=== PATIENT | female | born 1970 | race Caucasian/White ===

== ENCOUNTER → 2019-06-30 11:30 | Outpatient (CLI) | payer OTHER, MEDICAID, SELFPAY ==
[2019-06-30 12:57] LABS: Hemoglobin A1c 11.8 % (4.2-6.3)
[2019-06-30 13:21] LABS: ALB/GLOB Ratio 0.9 RATIO (0.9-2.4); AST(SGOT) 16 U/L (15-37); Alanine Aminotransfer ALT/SGPT 30 U/L (13-56); Albumin, Serum 3.5 g/dL (3.2-5.0); Alkaline Phosphatase 112 U/L (45-117); Anion Gap 11 (5-15); BUN 12 mg/dL (7-18); Calcium,Total 9.2 mg/dL (8.5-10.1); Chloride 99 mmol/L (98-107); Creatinine, Serum 0.92 mg/dL (0.55-1.02); EST Glomerular Filtration Rate 68 mL/min (>60); Est Glom Filt Rate - Afr Amer 83 mL/min (>60); Globulin 3.9 g/dL (2.2-4.2); Glucose 487 mg/dL (74-106); Potassium 3.9 mmol/L (3.5-5.1); Protein, Total 7.4 g/dL (6.4-8.2); Sodium Level 135 mmol/L (136-145); T4 Free Direct 0.93 ng/dL (0.76-1.46); Thyroid Stim Hormone (TSH) 2.13 uIU/mL (0.358-3.74)
== END ==
PROVIDERS: Family Provider Family Medicine; PCP Family Medicine; Referring Provider Internal Medicine Endocrinology, Diabetes & Metabolism; Visit Provider Internal Medicine Endocrinology, Diabetes & Metabolism
DX: E11.65 Type 2 diabetes mellitus with hyperglycemia (principal)
CPT/HCPCS: 36415; 80053; 83036; 84439; 84443

== ENCOUNTER → 2019-10-14 10:49 | Outpatient (CLI) | payer OTHER, SELFPAY | PROVIDERS: PCP Family Medicine; Referring Provider Internal Medicine Endocrinology, Diabetes & Metabolism; Visit Provider Internal Medicine Endocrinology, Diabetes & Metabolism | DX: E10.65 Type 1 diabetes mellitus with hyperglycemia (principal) | CPT/HCPCS: 36415; 83036 ==

== ENCOUNTER → 2023-09-29 | Outpatient (CLI) | payer OTHER, SELFPAY ==
[2023-09-29 10:38] LABS: Microalbumin:Creatinine Ratio 298.3 mg/g CRE (<30 mg/g CRE)
[2023-09-29 10:45] LABS: AST(SGOT) 25 U/L (15-37); Alanine Aminotransfer ALT/SGPT 37 U/L (13-56); Albumin, Serum 3.2 g/dL (3.2-5.0); Alkaline Phosphatase 143 U/L (45-117); Anion Gap 4 (5-15); BUN 12 mg/dL (7-18); Calcium,Total 8.9 mg/dL (8.5-10.1); Chloride 105 mmol/L (98-107); Cholesterol 247 mg/dL (200); Creatinine, Serum 0.86 mg/dL (0.55-1.02); EST Glomerular Filtration Rate 73 mL/min (>60); Est Glom Filt Rate - Afr Amer 88 mL/min (>60); Globulin 4.5 g/dL (2.2-4.2); Glucose 405 mg/dL (74-106); High Density Lipoprotein 57 mg/dL; Potassium 3.5 mmol/L (3.5-5.1); Protein, Total 7.7 g/dL (6.4-8.2); Sodium Level 136 mmol/L (136-145); Triglycerides 113 mg/dL; Very Low Density Lipoprotein 23 mg/dL (5-40)
[2023-09-29 11:46] LABS: Hemoglobin A1c 12.7 % (3.8-5.6)
== END | disposition home or self-care (01) ==
LOC: MFPLAB 08:09
PROVIDERS: PCP Family Medicine; Visit Provider Family Medicine
DX: E11.65 Type 2 diabetes mellitus with hyperglycemia (principal)
CPT/HCPCS: 36415; 80048; 80061; 80076; 82043; 82570; 83036

== ENCOUNTER → 2023-11-21 | Outpatient (CLI) | payer OTHER, SELFPAY ==
--- NOTE | 2023-11-21 17:13 | RAD_ITS ---
INDICATION: pain EXAMINATION/TECHNIQUE: X-RAY - XR Right Ribs Unilateral W/ PA Chest Min 3 Views COMPARISON: FINDINGS: SOFT TISSUES: No soft tissue swelling or gas. BONES: No displaced fracture. No sclerotic or destructive changes observed. VISUALIZED LUNGS: Clear. No pneumothorax. RAD/Ribs Uni Min 3V w/PA Chest IMPRESSION: No evidence of displaced rib fracture. Electronically Signed: Daryn Quiroz DO at 19:45 EDT ,
== END | disposition home or self-care (01) ==
LOC: MTRAD 17:11
PROVIDERS: PCP Family Medicine; Referring Provider Family Medicine; Visit Provider Family Medicine
DX: R07.81 Pleurodynia (principal)
CPT/HCPCS: 71101

== ENCOUNTER 2023-11-27 17:08 | Emergency (ER) | payer OTHER, SELFPAY ==
[2023-11-27 17:09] VITALS: BP 132/79; PULSE 89; RESP 18; TEMP 36.2; O2SAT 97; BMI 22.3
--- NOTE | 2023-11-27 17:38 | ED.VIS.GI ---
HPI HPI - GI History of Present Illness Chief Complaint: Abd Pain Informant: patient and spouse/S.O. Narrative Narrative: 53-year-old diabetic female presenting to the emergency room with 1 week of constant right upper quadrant pain. Patient states that pushing on it seems to make it worse. No difference with food. No vomiting. No change in bowel movements. States she had a chest x-ray done that was negative and she was started on gabapentin out of concerns for possible shingles. She does note that it radiates towards the back. states that he pushed on the area of the back which seem to make it feel better. She does state that when she lays down in a certain position it can get worse sometimes better. No reported fevers. [facility], [facility] Medical History (Updated 11/27/23 @ 20:[address] Ash Lemus DO) Diabetes High cholesterol History of nephrolithotomy with removal of calculi Home Medications Lantus Solostar U-100 Insulin 100 unit/mL (3 mL) subcutaneous pen (insulin glargine) 30 unit (0.3 mL) subcut DAILY #9 mL 10/29/23 [Rx Last Taken Unknown] atorvastatin 10 mg tablet 10 mg PO QHS #30 tabs 10/29/23 [Rx Last Taken Unknown] blood-glucose sensor (FreeStyle Erika 3 Sensor device) #2 ea 10/29/23 [Rx Last Taken Unknown] insulin lispro 100 unit/mL subcutaneous pen (Humalog KwikPen (U-100) Insulin) 20 unit (0.2 mL) subcut TID #18 mL 10/29/23 [Rx Last Taken Unknown] lisinopril 2.5 mg tablet 2.5 mg PO DAILY #30 tabs 10/29/23 [Rx Last Taken Unknown] lidocaine 5 % topical patch (Lidoderm) 1 patch topical DAILY #15 ea 11/27/23 [Rx Last Taken Unknown] oxycodone-acetaminophen 5 mg-325 mg tablet 1 tab PO Q6H PRN PRN Pain 3 days #12 TABLETS 11/27/23 [Rx Last Taken Unknown] Allergy/AdvReac Type Severity Reaction Status Date / Time No Known Allergies Allergy Verified 11/27/23 17:09 Social History Smoking Status: Never smoker alcohol intake: current details: rare occasions what type of physical activity do you participate in: walking, running and other details: kettlebells frequency: 1-2 times per week ROS ROS ED Constitutional Constitutional ED: Denies chills, fever(s) or weight loss Eyes Eyes: Denies change in vision or diplopia ENT ENT ED: Denies ear pain, rhinorrhea or sore throat Cardiovascular Cardiovascular: Denies chest pain, orthopnea, palpitations or racing heartbeat Respiratory/Chest Respiratory/Chest: Denies cough, dyspnea or orthopnea Gastrointestinal Gastrointestinal: Reports abdominal pain; Denies diarrhea, nausea or vomiting Genitourinary Genitourinary ED: Denies dysuria, hematuria or urinary frequency Musculoskeletal Musculoskeletal: Denies arthralgias or myalgias Integumentary Denies abscess or rash Neurologic Neurologic: Denies headache(s) or weakness Psychiatric Psychiatric: Denies anxiety, depression, suicidal ideation or suicidal thoughts Endocrine Endocrinology: Denies polydipsia, polyphagia or polyuria Allergic/Immunologic Allergic/Immunologic ED: Denies mouth swelling, tongue swelling or urticaria EXAM Physical Exam Const Vital Signs: 11/27/23 17:09 11/27/23 19:09 Temperature 97.2 F L Temperature Source Temporal Pulse Rate 89 79 Respiratory Rate 18 14 Blood Pressure 132/79 H 137/100 H Blood Pressure Mean 96 112 Pulse Ox 97 99 Oxygen Delivery Method Room Air Room Air Positive well nourished and well developed General Appearance ED: well developed HEENT Reports normocephalic, head/scalp atraumatic and moist mucous membranes Eyes PERRL and EOMs intact bilaterally Neck no lymphadenopathy, supple and no JVD Chest Wall Chest Narrative: Patient is very tender to palpation over the lower ribs about 9 through 12. No rashes are appreciated. It is tender both anteriorly and posteriorly. Resp normal respiratory effort and clear to auscultation bilaterally Cardio regular rate, regular rhythm and no murmurs GI GI Narrative: Tender palpation of the right upper quadrant without rebound. Auscultation: normoactive bowel sounds Palpation: soft, tender RUQ and guarding; Negative for rebound tenderness present Back/Spine no CVA tenderness and normal ROM Extremity normal to inspection General Extremety ED: Negative for edema General Extremity: Negative for edema Neuro oriented x3 and CN's II-XII intact bilaterally Sensorium / Orientation: alert Motor Exam: strength 5/5 throughout Psych mental status grossly normal Mood & Affect: Negative for depressed or tearful Skin no rashes or lesions noted and no wounds MDM MDM MDM Narrative Medical decision making narrative: IV established patient received some Dilaudid and Zofran which did improve her back pain and temporarily improved her right upper quadrant pain. White count 7.1 hemoglobin 12.6 platelet count 313. BMP showed a glucose of 173 normal creatinine normal anion gap and CO2 level. LFTs are normal troponin is negative lipase 29 urinalysis 25-50 white cells [address] of the pelvis was obtained which does not demonstrate anything acute. There is a small fat-containing umbilical hernia. My independent interpretation of the chest x-ray is no acute process. Patient was noted on the monitor to have 2 sinus beats followed by a atrial ectopic beat. This was not a persistent finding. She does have the occasional atrial ectopy. I did do a bedside ultrasound. She is not particularly tender over the gallbladder. I do not see any pericholecystic fluid. The intrahepatic and extrahepatic ducts do not appear dilated. She is more tender over the ribs. I do not have a clear explanation for the patient's pain. She states the gabapentin that she is taking is not helping some to have her stop that. Will try a Lidoderm patch. If this works I will write her prescription. I can also write a prescription for some Percocet. Patient was given clear return instructions and instructions to follow-up with primary care History & Record Review Discussion w/independent historian: Patient and Significant other Lab Data Attestation: I reviewed the patient's lab results. Labs: Laboratory Results - last 24 hr 11/27/23 11/27/23 18:00 18:40 WBC 7.1 RBC 4.47 Hgb 12.6 Hct 38.2 MCV 85.5 MCH 28.2 MCHC 33.0 RDW Std Deviation 37.2 RDW Coeff of Jojo 11.9 Plt Count 313 MPV 10.2 Immature Gran % (Auto) 0.300 Neut % (Auto) 62.0 Lymph % (Auto) 25.8 [place] % (Auto) 6.0 Eos % (Auto) 5.5 H Baso % (Auto) 0.4 Absolute Neuts (auto) 4.4 Absolute Lymphs (auto) 1.84 Nucleated RBC % 0 Sodium 139 Potassium 3.6 Chloride 105 Carbon Dioxide 29.0 Anion Gap 5 BUN 18 Creatinine 0.68 Estim Creat Clear Calc 94.30 Est GFR (MDRD) Af Amer 115 Est GFR (MDRD) Non-Af 95 BUN/Creatinine Ratio 26.4 H Glucose 173 H Calcium 9.1 Total Bilirubin 0.30 Direct Bilirubin 0.11 AST 15 ALT 19 Alkaline Phosphatase 82 Troponin I High Sens < 3 L Total Protein 7.0 Albumin 3.4 Globulin 3.6 Lipase 29 Urine Color Yellow Urine Clarity Sl. Cloudy Urine pH 6.0 Ur Specific [place] 1.025 Urine Protein 15 H Urine Glucose (UA) Normal Urine Ketones Negative Urine Occult Blood Negative Urine Nitrite Negative Urine Bilirubin Negative Urine Urobilinogen Normal Ur Leukocyte Esterase 500 H Urine RBC 0 SEEN Urine WBC 25-50 SEEN Ur Squamous Epith Cells 0-5 SEEN Urine Bacteria 0 SEEN Urine Mucus 0 SEEN Radiography Diagnostic Testing: Clinical Impression(s) from Imaging Studies Abdomen/Pelvis CT 11/27/23 18:25 IMPRESSION: (NOT LISTED IN ORDER OF SIGNIFICANCE) There are no acute findings. Other findings as above. Electronically Signed: Balaji Vargas MD at 19:16 EDT , Chest X-Ray 11/27/23 19:30 IMPRESSION: No radiographic evidence of acute cardiopulmonary disease. Electronically Signed: Balaji Vargas MD at 19:46 EDT , EKG Initial EKG: Attestation: I personally reviewed and interpreted this EKG as follows: Comments: Sinus rhythm with a ventricular to 76 bpm. PACs noted. Discharge Plan Triage Chief Complaint: Abd Pain Other Complaint: Back Flank Pain ED Provider: Ash Lemus Dx/Rx/DC Orders Clinical Impression: Abdominal pain Instructions: Abdominal Pain Prescriptions: New oxycodone-acetaminophen [oxycodone-acetaminophen] 5-325 mg tablet 1 tab PO Q6H PRN PRN (Reason: Pain) 3 Days Qty: 12 0RF lidocaine [Lidoderm] 5 % adhesive patch,medicated 1 patch topical DAILY Qty: 15 0RF Rx Instructions: leave on most painful area for up to 12 hrs No Action (DME) FreeStyle Erika 3 Sensor Device See Rx Instructions .Route Qty: 2 5RF Rx Instructions: 1 sensor q 14 days insulin glargine [Lantus Solostar U-100 Insulin] 100 unit/mL (3 mL) insulin pen 30 unit subcut DAILY Qty: 9 5RF insulin lispro [Humalog KwikPen Insulin] 100 unit/mL insulin pen 20 unit subcut TID Qty: 18 5RF lisinopril 2.5 mg tablet 2.5 mg PO DAILY Qty: 30 5RF atorvastatin 10 mg tablet 10 mg PO QHS Qty: 30 5RF Primary Care Provider: Sushila Mckinley Referrals: Sushila Mckinley MD [Primary Care Provider] - 3-5 Days Disposition Disposition: Home, Self Care
--- NOTE | 2023-11-27 17:45 | ED.RN ---
irregular HR noted in triage, called for EKG from triage.
[2023-11-27 18:05] LABS: Absolute Lymphocyte Count 1.84 X10^3/uL (0.83-4.51); Absolute Neutrophil Count 4.4 X10^3/uL (2.0-7.7); Basophil# 0.03 X10^3/uL; Basophil% 0.4 % (0-1); Eosinophil# 0.39 X10^3/uL; Eosinophils% 5.5 % (0-5); Hematocrit 38.2 % (37-47); Hemoglobin 12.6 g/dL (12.0-15.0); Lymphocyte # 1.84 X10^3/ul (0.83-4.51); Lymphocyte % 25.8 % (19-41); Mean Corpuscular Hgb 28.2 pg (27.0-32.0); Mean Corpuscular Volume 85.5 fL (81-99); Mean Platelet Vol. 10.2 fl (6.2-12.0); Monocyte# 0.43 X10^3/uL; NRBC Flagged by Analyzer 0 % (0-5); Neutrophil # 4.42 X10^3/uL (2.7-7.7); Platelet Count 313 K/mm3 (150-450); RBC Distribution Width CV 11.9 % (11.6-14.6); RBC Distribution Width SD 37.2 fl (35.1-43.9); Red Blood Count 4.47 M/mm3 (4.2-5.4); White Blood Count 7.1 K/mm3 (4.4-11.0)
[2023-11-27 18:23] LABS: AST(SGOT) 15 U/L (15-37); Alanine Aminotransfer ALT/SGPT 19 U/L (13-56); Albumin, Serum 3.4 g/dL (3.2-5.0); Alkaline Phosphatase 82 U/L (45-117); Anion Gap 5 (5-15); BUN 18 mg/dL (7-18); BUN/Creat Ratio 26.4 RATIO (10-20); Bilirubin, Direct 0.11 mg/dL (0.00-0.30); Calcium,Total 9.1 mg/dL (8.5-10.1); Chloride 105 mmol/L (98-107); Creatinine, Serum 0.68 mg/dL (0.55-1.02); EST Glomerular Filtration Rate 95 mL/min (>60); Est Glom Filt Rate - Afr Amer 115 mL/min (>60); Globulin 3.6 g/dL (2.2-4.2); Glucose 173 mg/dL (74-106); Lipase 29 U/L (13-75); Potassium 3.6 mmol/L (3.5-5.1); Sodium Level 139 mmol/L (136-145)
--- NOTE | 2023-11-27 18:25 | CT_ITS ---
STUDY: CT Abdomen And Pelvis W/ Contrast Injection 11/27/2023 7:14 PM REASON FOR EXAM: Female, 53 years old. ABDOMINAL PAIN abdominal pain TECHNIQUE: Transaxial images were obtained without oral contrast, and IV 100mL Isovue-370 intravenous contrast. Individualized dose optimization techniques were used for this CT. COMPARISON: 06.09.12 FINDINGS: The visualized lung bases are unremarkable. The visualized portions of the heart are within normal limits. Unremarkable liver. Unremarkable gallbladder and extrahepatic biliary system. Unremarkable spleen. Unremarkable pancreas. Unremarkable bilateral adrenal glands. No acute findings of the right kidney. No acute findings of the left kidney. Unremarkable visualized stomach. Unremarkable small intestine. Unremarkable colon. There is non-visualization of the appendix. There are no acute findings of the abdominal aorta. Unremarkable inferior vena cava. Subcentimeter mesenteric lymph nodes. Unremarkable urinary bladder. Normal visualized uterus. Tubal ligation wires in place. There is an umbilical hernia containing fat. Unremarkable osseous structures. CT/Abdomen/Pelvis W IV Cont ONLY IMPRESSION: (NOT LISTED IN ORDER OF SIGNIFICANCE) There are no acute findings. Other findings as above. Electronically Signed: Balaji Vargas MD at 19:16 EDT ,
[2023-11-27] MEDS: HYDROmorphone 1 MG/ML Syringe 0.5 MG IV (18:27)
[2023-11-27] MEDS: Ondansetron 4 MG/2 ML Vial IV (18:27)
[2023-11-27 18:46] LABS: Bacteria 0 SEEN /hpf (None Seen); Mucous, Urine 0 SEEN /hpf (<or=2+); Red Blood Cells-Urine 0 SEEN /hpf (0-5)
[2023-11-27 18:49] LABS: Color, Urine Yellow (Yellow); Glucose, Dipstick Normal (Normal); Ketone-Dipstick Negative (Negative); Leukocyte Esterase-Dipstick 500 /ul (Negative); Nitrite-Dipstick Negative (Negative); Occult Blood-Urine Negative /ul (Negative); Protein-Dipstick 15 mg/dl (Negative); Specific Gravity, Urine 1.025 (1.002-1.030); Urine Bilirubin Dipstick Negative (Negative); Urine Clarity Sl. Cloudy (Clear); Urine Urobilinogen Normal (Normal)
[2023-11-27 18:57] LABS: Squamous Epithelial Cells - UA 0-5 SEEN /hpf (5-10); White Blood Cells 25-50 SEEN /hpf (0-5)
[2023-11-27 19:09] VITALS: BP 137/100; PULSE 79; RESP 14; O2SAT 99
--- NOTE | 2023-11-27 19:30 | RAD_ITS ---
EXAM: XR CHEST, 1 VIEW CLINICAL INDICATION: Pain TECHNIQUE: Frontal view of the chest. COMPARISON: 11/21/2023 FINDINGS: LUNGS AND PLEURAL SPACES: Unremarkable. No consolidation or edema. No pneumothorax. No effusion. HEART: Unremarkable. Cardiac silhouette not enlarged. MEDIASTINUM: Central airways and mediastinal contour are unremarkable. BONES/JOINTS: Unremarkable. No acute fracture. SOFT TISSUES: Unremarkable. RAD/Chest 1 View (Portable) IMPRESSION: No radiographic evidence of acute cardiopulmonary disease. Electronically Signed: Balaji Vargas MD at 19:46 EDT ,
[2023-11-27 19:43] LABS: Troponin-I HS < 3 pg/mL (3.0-54.0)
[2023-11-27] MEDS: Lidocaine 5% Patch 1 PATCH TOPICAL (20:56)
[2023-11-27 21:00] VITALS: BP 119/88; PULSE 84; RESP 16; TEMP 36.7; O2SAT 99
== END 2023-11-27 21:07 | disposition home or self-care (01) ==
PROVIDERS: Emergency Provider Emergency Medicine; PCP Family Medicine; Visit Provider Emergency Medicine
DX: R10.11 Right upper quadrant pain (principal); E11.9 Type 2 diabetes mellitus without complications; Z79.4 Long term (current) use of insulin; M54.9 Dorsalgia, unspecified; E78.00 Pure hypercholesterolemia, unspecified; Z79.899 Other long term (current) drug therapy
CPT/HCPCS: 71045; 74177; 80048; 80076; 81001; 83690; 84484; 85025; 93005; 96374; 96375; 99285; Q9967; A4216; J2405

== ENCOUNTER → 2023-12-01 | Outpatient (CLI) | payer OTHER, SELFPAY ==
[2023-12-01 08:39] LABS: Glucose 95 mg/dL (74-106)
[2023-12-02 12:09] LABS: C-Peptide 0.4 ng/mL (1.1-4.4)
== END | disposition home or self-care (01) ==
PROVIDERS: PCP Family Medicine; Visit Provider Nurse Practitioner Family
DX: E11.9 Type 2 diabetes mellitus without complications (principal)
CPT/HCPCS: 36415; 82947; 84681

== ENCOUNTER 2023-12-05 17:37 | Emergency (ER) | payer OTHER, SELFPAY ==
[2023-12-05 17:37] VITALS: BP 157/97; PULSE 93; RESP 16; TEMP 36.1
[2023-12-05 17:39] VITALS: BP 157/97; PULSE 93; RESP 16; TEMP 36.1; BMI 22.2
--- NOTE | 2023-12-05 18:06 | US_ITS ---
EXAM: US ABDOMEN LIMITED, RIGHT UPPER QUADRANT CLINICAL INDICATION: RUQ pain TECHNIQUE: Real-time ultrasound of the right upper quadrant with image documentation. COMPARISON: No relevant prior studies available. FINDINGS: LIVER: The liver measures 14.3 cm. There is normal echotexture. No intrahepatic biliary ductal dilation. GALLBLADDER: Gallbladder wall measures 3 mm. No shadowing gallstone. No pericholecystic fluid. Negative sonographic Deleon''s sign. COMMON BILE DUCT: The common bile duct measures 3 mm. The proximal common bile duct is within normal limits for the patient''s age. PANCREAS: Unremarkable as visualized. No focal abnormality is demonstrated in the pancreas. No pancreatic ductal dilatation. RIGHT KIDNEY: The right kidney measures 11.1 x 5.0 x 4.9 cm. There is no hydronephrosis. No shadowing calculus. No focal lesion or perinephric collection is demonstrated. US/Gallbladder IMPRESSION: No acute findings in the right upper quadrant. Electronically Signed: Karri Li MD at 19:24 EDT ,
--- NOTE | 2023-12-05 18:07 | EX.ED.DYSGE1 ---
HPI History of Present Illness Chief Complaint: Abd Pain Detail of Chief Complaint: Right upper quadrant pain Informant: patient Onset/Context/Timing Onset: Weeks Context: Gradual Onset Timing: Waxes and wanes Narrative Narrative: Patient presents with approximately 2 weeks of right upper quadrant pain. She was initially seen by her primary care physician and put on gabapentin for possible early shingles as she had pain that wraps around the lower ribs on the right. She never did break out in a rash. She continues to have pain that is worse to the right upper quadrant and states it feels like a tight charley horse. She does feel better when she puts pressure on the muscles in her right paraspinal region. She has had no fall or trauma. She states she will have slightly worsened pain after she eats. She has not had fever or chills. Patient was seen in the emergency room last week. CT scan was unremarkable and bedside ultrasound did not reveal any obvious abnormalities to the right upper quadrant. She is scheduled to see Dr. Diana on December 14. [facility] Medical History Diabetes High cholesterol History of nephrolithotomy with removal of calculi Home Medications Lantus Solostar U-100 Insulin 100 unit/mL (3 mL) subcutaneous pen (insulin glargine) 30 unit (0.3 mL) subcut DAILY #9 mL 10/29/23 [Rx Last Taken Unknown] atorvastatin 10 mg tablet 10 mg PO QHS #30 tabs 10/29/23 [Rx Last Taken Unknown] blood-glucose sensor (FreeStyle Erika 3 Sensor device) #2 ea 10/29/23 [Rx Last Taken Unknown] insulin lispro 100 unit/mL subcutaneous pen (Humalog KwikPen (U-100) Insulin) 20 unit (0.2 mL) subcut TID #18 mL 10/29/23 [Rx Last Taken Unknown] lisinopril 2.5 mg tablet 2.5 mg PO DAILY #30 tabs 10/29/23 [Rx Last Taken Unknown] lidocaine 5 % topical patch (Lidoderm) 1 patch topical DAILY #15 ea 11/27/23 [Rx Last Taken Unknown] oxycodone-acetaminophen 5 mg-325 mg tablet 1 tab PO Q6H PRN PRN Pain 3 days #12 TABLETS 11/27/23 [Rx Last Taken Unknown] tramadol 25 mg tablet 50 mg (2 x 25 mg) PO Q6H PRN pain #20 tabs 12/05/23 [Rx Last Taken Unknown] Allergy/AdvReac Type Severity Reaction Status Date / Time No Known Allergies Allergy Verified 12/05/23 17:38 Social History Smoking Status: Never smoker alcohol intake: current details: rare occasions what type of physical activity do you participate in: walking, running and other details: kettlebells frequency: 1-2 times per week ROS ROS ED Constitutional Constitutional ED: Denies chills or fever(s) Eyes Eyes: Denies discharge from eye(s) ENT ENT ED: Denies discharge from eye(s), rhinorrhea or sore throat Cardiovascular Cardiovascular: Denies chest pain or palpitations Respiratory/Chest Respiratory/Chest: Denies cough or dyspnea Gastrointestinal Gastrointestinal: Reports abdominal pain; Denies nausea or vomiting Genitourinary Genitourinary ED: Denies dysuria Musculoskeletal Musculoskeletal: Reports back pain; Denies extremity pain Integumentary Denies Abrasions or rash Neurologic Neurologic: Denies headache(s) or weakness Allergic/Immunologic Allergic/Immunologic ED: Denies lip swelling or urticaria EXAM Physical Exam Const Vital Signs: 12/05/23 17:39 12/05/23 17:37 Temperature 96.9 F L 96.9 F L Temperature Source Temporal Temporal Pulse Rate 93 93 Respiratory Rate 16 16 Blood Pressure 157/97 H 157/97 H Blood Pressure Mean 117 117 Positive well nourished and well developed General Appearance ED: well developed Eyes EOMs intact bilaterally Neck no lymphadenopathy Chest Wall inspection of chest normal and palpation of chest normal Resp normal respiratory effort and clear to auscultation bilaterally Cardio regular rate and regular rhythm GI GI Narrative: Abdomen soft with mild tenderness in the right upper quadrant. No palpable masses. No guarding or rebound. Back/Spine Back/Spine Narrative: Reproducible tenderness in the lower thoracic right paraspinal muscles. No overlying skin change. Extremity normal to inspection Neuro oriented x3 and no sensory deficits noted Motor Exam: strength 5/5 throughout Psych mental status grossly normal Skin no rashes or lesions noted MDM MDM MDM Narrative Medical decision making narrative: IV line established. Patient given morphine and Zofran along with IV fluids. Labwork obtained to evaluate for leukocytosis, anemia, and electrolyte derangement. Formal ultrasound of the right upper quadrant will be obtained to evaluate for any acute gallbladder abnormalities. History & Record Review Discussion w/independent historian: Patient Additional record(s) reviewed:: Prior ED visit and Prior labs Lab Data Attestation: I reviewed the patient's lab results. Labs: Laboratory Results - last 24 hr 12/05/23 18:10 WBC 8.0 RBC 4.79 Hgb 13.5 Hct 40.3 MCV 84.1 MCH 28.2 MCHC 33.5 RDW Std Deviation 35.3 RDW Coeff of Jojo 11.5 L Plt Count 327 MPV 10.1 Immature Gran % (Auto) 0.200 Neut % (Auto) 61.4 Lymph % (Auto) 26.2 [place] % (Auto) 6.6 Eos % (Auto) 5.0 Baso % (Auto) 0.6 Absolute Neuts (auto) 4.9 Absolute Lymphs (auto) 2.10 Nucleated RBC % 0 Sodium 137 Potassium 3.6 Chloride 103 Carbon Dioxide 32.0 Anion Gap 2 L BUN 18 Creatinine 0.82 Estim Creat Clear Calc 78.20 Est GFR (MDRD) Af Amer 93 Est GFR (MDRD) Non-Af 77 BUN/Creatinine Ratio 22.0 H Glucose 172 H Calcium 9.2 Total Bilirubin 0.30 Direct Bilirubin 0.07 AST 14 L ALT 21 Alkaline Phosphatase 86 Total Protein 7.7 Albumin 3.8 Globulin 3.9 Lipase 31 Radiography Diagnostic Testing: Clinical Impression(s) from Imaging Studies Gallbladder Ultrasound 12/05/23 18:06 IMPRESSION: No acute findings in the right upper quadrant. Electronically Signed: Karri Li MD at 19:24 EDT , Treatment and Re-Evaluation :: CBC was normal white count 8.0 with normal differential. Hemoglobin 13.5. Chemistry studies are unremarkable other than a glucose of 172. LFTs and lipase are normal. Right upper quadrant ultrasound reveals no acute findings. Test results discussed with patient and at bedside. She states the oxycodone that she has does help, however it makes her very sleepy and dopey. I will write her for a course of tramadol to see if we can help control her pain better but not give her the sedating side effects. We are trying to avoid NSAIDs given her diabetes. She states she was taking ibuprofen and Aleve regularly before she was last seen in the ER and this did nothing for her pain. Patient has an appointment to see Dr. Diana on the . I will refer her to Dr. Weinberg, on-call for surgery [facility] to see if she may be able to be seen sooner. Discharge Plan Triage Chief Complaint: Abd Pain ED Provider: Arleth Vallejo Dx/Rx/DC Orders Clinical Impression: Abdominal pain Instructions: ED Abdominal Pain Unkn Cause Fem Prescriptions: New tramadol 25 mg tablet 50 mg PO Q6H PRN (Reason: pain) Qty: 20 0RF Rx Instructions: 1-2 tabs po [id number] prn pain No Action oxycodone-acetaminophen [oxycodone-acetaminophen] 5-325 mg tablet 1 tab PO Q6H PRN PRN (Reason: Pain) 3 Days Qty: 12 0RF lidocaine [Lidoderm] 5 % adhesive patch,medicated 1 patch topical DAILY Qty: 15 0RF Rx Instructions: leave on most painful area for up to 12 hrs (DME) FreeStyle Erika 3 Sensor Device See Rx Instructions .Route Qty: 2 5RF Rx Instructions: 1 sensor q 14 days insulin glargine [Lantus Solostar U-100 Insulin] 100 unit/mL (3 mL) insulin pen 30 unit subcut DAILY Qty: 9 5RF insulin lispro [Humalog KwikPen Insulin] 100 unit/mL insulin pen 20 unit subcut TID Qty: 18 5RF lisinopril 2.5 mg tablet 2.5 mg PO DAILY Qty: 30 5RF atorvastatin 10 mg tablet 10 mg PO QHS Qty: 30 5RF Primary Care Provider: Sushila Mckinley Referrals: Elie Weinberg MD [Med Staff - Active Staff] - As soon as possible Sushila Mckinley MD [Primary Care Provider] - Disposition Disposition: Home, Self Care
[2023-12-05 18:18] LABS: Absolute Neutrophil Count 4.9 X10^3/uL (2.0-7.7); Basophil# 0.05 X10^3/uL; Basophil% 0.6 % (0-1); Hematocrit 40.3 % (37-47); Hemoglobin 13.5 g/dL (12.0-15.0); Lymphocyte % 26.2 % (19-41); Mean Corp Hgb Conc 33.5 g/dL (32-36); Mean Corpuscular Hgb 28.2 pg (27.0-32.0); Mean Corpuscular Volume 84.1 fL (81-99); Mean Platelet Vol. 10.1 fl (6.2-12.0); Monocyte# 0.53 X10^3/uL; Monocyte% 6.6 % (0-10); NRBC Flagged by Analyzer 0 % (0-5); Neutrophil # 4.93 X10^3/uL (2.7-7.7); Neutrophil % 61.4 % (47-70); Platelet Count 327 K/mm3 (150-450); RBC Distribution Width CV 11.5 % (11.6-14.6); RBC Distribution Width SD 35.3 fl (35.1-43.9); Red Blood Count 4.79 M/mm3 (4.2-5.4)
[2023-12-05] MEDS: Ondansetron 4 MG/2 ML Vial IV (18:18)
[2023-12-05] MEDS: 0.9% Normal Saline (1000mL) 1,000 ML 150 ML IV (18:18)
[2023-12-05] MEDS: Morphine 4 MG/ML Syringe IV (18:18)
[2023-12-05 18:35] LABS: AST(SGOT) 14 U/L (15-37); Alanine Aminotransfer ALT/SGPT 21 U/L (13-56); Albumin, Serum 3.8 g/dL (3.2-5.0); Alkaline Phosphatase 86 U/L (45-117); Anion Gap 2 (5-15); BUN 18 mg/dL (7-18); Bilirubin, Direct 0.07 mg/dL (0.00-0.30); Calcium,Total 9.2 mg/dL (8.5-10.1); Chloride 103 mmol/L (98-107); Creatinine, Serum 0.82 mg/dL (0.55-1.02); EST Glomerular Filtration Rate 77 mL/min (>60); Est Glom Filt Rate - Afr Amer 93 mL/min (>60); Globulin 3.9 g/dL (2.2-4.2); Glucose 172 mg/dL (74-106); Lipase 31 U/L (13-75); Potassium 3.6 mmol/L (3.5-5.1); Protein, Total 7.7 g/dL (6.4-8.2); Sodium Level 137 mmol/L (136-145)
[2023-12-05 19:37] VITALS: BP 128/75; PULSE 60; RESP 16; TEMP 36.6; O2SAT 98
[2023-12-05 20:21] VITALS: BP 128/75; PULSE 60; RESP 16; TEMP 36.6; O2SAT 98
== END 2023-12-05 20:23 | disposition home or self-care (01) ==
PROVIDERS: Emergency Provider Emergency Medicine; PCP Family Medicine; Visit Provider Emergency Medicine
DX: R10.11 Right upper quadrant pain (principal); E11.9 Type 2 diabetes mellitus without complications
CPT/HCPCS: 76705; 80048; 80076; 83690; 85025; 96361; 96374; 96375; 99283; A4216; J2405

== ENCOUNTER → 2023-12-16 | Outpatient (CLI) | payer OTHER, SELFPAY ==
--- NOTE | 2023-12-16 07:51 | NM_ITS ---
CLINICAL: 53-year-old female with history of right upper quadrant abdominal pain. RADIONUCLIDE HEPATOBILIARY SCINTIGRAPHY COMPARISON: Abdominal ultrasound report 12/05/2023 FINDINGS: Following the intravenous administration of 5.5 mCi of 99m Tc Mebrofenin, hepatobiliary images reveal: 1. Relatively prompt and homogeneous radiopharmaceutical concentration is noted by a normal sized liver. No parenchymal defects are identified. 2. Gallbladder activity is identified at 10 minutes post radiopharmaceutical administration. 3. Small intestinal tract is observed at 60 minutes following tracer injection. 4. Washout of the radiopharmaceutical by the hepatic parenchyma appears qualitatively normal. Cholecystokinin (0.02 ug/kg) was administered intravenously over a 30-minute period. The post CCK gallbladder ejection fraction calculated at 20 minutes following Cholecystokinin administration was noted to be 74.0 % (normal greater than 35%). During 30 minutes of post CCK imaging, there is no scintigraphic evidence of reflux of the radiotracer into the common hepatic duct or refilling of the gallbladder. There is duodenal gastric reflux following CCK administration. NM/Hepatobilliary Img w/Pharm Int IMPRESSION: 1. A gallbladder ejection fraction calculated to be greater than 35% following the administration of Cholecystokinin makes the probability of functional hepatobiliary disease (gallbladder and/or sphincter of Oddi dyskinesia) and/or organic hepatobiliary disease (chronic acalculous cholecystitis and/or cystic duct syndrome) to be low. (Cheryl Ace et al, Journal of Nuclear Medicine 32:1695, 1991). 2. Duodenal-gastric reflux is demonstrated following cholecystokinin provision. Electronically Signed: Naren Pink DO at 11:03 EDT ,
== END | disposition home or self-care (01) ==
LOC: NM 07:50
PROVIDERS: PCP Family Medicine; Referring Provider Physician Assistant; Visit Provider Physician Assistant
DX: R10.11 Right upper quadrant pain (principal)
CPT/HCPCS: 78227; A9537; J2805

== ENCOUNTER 2023-12-30 09:00 | Day surgery (SDC) | payer OTHER, SELFPAY ==
[2023-12-30] VITALS (7 sets, daily range): BP systolic 110–137; BP diastolic 76–97; PULSE 75–100; RESP 16; TEMP 36.2–36.5; O2SAT 95–100; BMI 21.1
[2023-12-30] MEDS: Lactated Ringers 1,000 ML 15 ML IV (09:23)
[2023-12-30 09:44] LABS: Bedside Glucose 111 mg/dL (74-106)
--- NOTE | 2023-12-30 10:12 | PCM.HP.BLA ---
History and Physical Date of Admission: 12/30/23 Intake Vital Signs 12/04/2416:39 12/16/2409:25 Height 5 ft 8 in 5 ft 8 in Weight: 140 lb BMI 21.2 BP 88/63 L Blood Pressure Location Lt brachial Position Sitting Respiration 16 Intake Visit Reasons: ABD PAIN, ED 4-14 Chief Complaint: abd pain Licensed Appraiser Required: No Is patient in pain?: Yes (right rib) Pain scale (1-10): 2 Allergies No Known Allergies Allergy (Verified 12/17/23 10:23) Medications Lantus Solostar U-100 Insulin 100 unit/mL (3 mL) subcutaneous pen (insulin glargine) 30 unit (0.3 mL) subcut DAILY #9 mL 10/29/23 [Rx Confirmed 12/17/23] blood-glucose sensor (FreeStyle Erika 3 Sensor device) #2 ea 10/29/23 [Rx Confirmed 11/27/23] insulin lispro 100 unit/mL subcutaneous pen (Humalog KwikPen (U-100) Insulin) 20 unit (0.2 mL) subcut TID #18 mL 10/29/23 [Rx Confirmed 12/17/23] insulin pump cartridge,automated dose,BT with controller subcutaneous (Omnipod 5 G6 Intro Kit (Gen 5) subcutaneous cartridge with controller) #1 ea 12/16/23 [Rx] peg 3350-electrolytes 236 gram-22.74 gram-6.74 gram-5.86 gram solution 4,000 ml PO ONCE #4,000 mL 12/17/23 [Rx Confirmed 12/17/23] [facility] Medical History (Updated 12/17/23 @ 13:[address] Elie Weinberg MD) Diabetes High cholesterol History of nephrolithotomy with removal of calculi RUQ abdominal pain Surgical History (Updated 12/17/23 @ 10:10 by Franca Sales) S/P tubal ligation Family History (Updated 12/17/23 @ 10:23 by Franca Sales) Grandfather CAD (coronary artery disease)Grandmother COPD (chronic obstructive pulmonary disease) Social History Smoking Status: Never smoker alcohol intake: current details: rare occasions what type of physical activity do you participate in: walking, running and other details: kettlebells frequency: 1-2 times per week HPI HPI HPI: Patient is a 53-year-old female here for abdominal pain and constipation. The patient was being worked up for her gallbladder. She describes the pain as right sided but she says it radiates to the back. She said nothing makes it worse but it is constant is there every day. She says has been there for about a month or 2 and she is also been having constipation for a month or 2. She says it takes 3 or 4 days before she has a bowel movement. ROS General General: No weight change, appetite, fatigue, colon cancer, breast cancer or weakness HEENT HEENT: No difficulty swallowing, eye injury, eye surgery, swollen glands or hoarseness Endo Endocrine: Yes diabetes mellitus; No thyroid disease, thyroid cancer, Hair loss, heat intolerance or cold intolerance Skin Skin: No rash or changing moles Breast Breast: No left breast lump, right breast lump, nipple discharge, breast pain, abnormal mammogram, abnormal US or breast enlargement Musc Musculoskeletal: No back problems, arthritis, rheumatoid arthritis, gout or joint pain Cardio Cardiovascular: No murmur, pacemaker, heart disease, atrial fibrillation, high blood pressure, heart attack, heart stent, palpitations, shortness of breat with exertion or chest pain Psych Psychiatric: No depression, anxiety or hearing voices Resp Respiratory: No shortness of breath, No sleep apnea, No cough, No COPD, No asthma, No emphysema and No wheezing Gastro Gastrointestinal: Yes abdominal pain, No nausea or vomiting, No diarrhea, Yes constipation, No blood in stool, No acid reflux, No hemorrhoids, No ulcers, No gallbladder problem and No black,tarry stools Karl Hematologic: No blood thinners, No blood disorders, No bleeding, No anemia and No blood clots Neuro Neurologic: No system reviewed and no additional complaints, except as documented, No as per HPI, No abnormal gait, No abnormal hearing, No abnormal movements, No abnormal speech, No behavioral changes, No burning sensations, No confusion, No convulsions, No disequilibrium, No dizziness, No localized weakness, No frequent falls, No headache(s), No lack of coordination, No loss of vision, No memory loss, Yes numbness, No other visual disturbances, No radicular pain, No restless legs, No sensory deficit, No syncope, Yes tingling, No tremor(s), No weakness and No other Exam Const General: cooperative Orientation: alert and oriented x3 HENMT Head: normal to inspection Neck Neck: normal visual inspection and full ROM Chest Chest palpation & inspection: normal inspection of the chest Resp Effort & Inspection: normal respiratory effort Auscultation: clear to auscultation bilaterally Cardio Rate: regular rate Rhythm: regular rhythm GI Inspection: non-distended Palpation: soft and nontender Skin General: no rashes or lesions noted Neuro General: patient alert and patient oriented x3 Extrem General: full ROM Psych Appearance: grossly normal Mental Status: mental status grossly normal Assessment and Plan Assessment and Plan (1) RUQ abdominal pain: Status: Acute (2) Constipation: Status: Acute Qualifiers: Constipation type: unspecified constipation type Qualified Code(s): K59.00 - Constipation, unspecified Orders: Orders Colonoscopy 12/30/23 EGD 12/30/23 Medications: New peg 3350-electrolytes 236-22.74-6.74 -5.86 gram until fecal effluent is clear; do not exceed a total volume of 4000 mL 4,000 mL PO ONCE 4,000 mL 0RF Plan The patient is having constipation which may be the cause of her right sided abdominal pain. The patient was in the emergency room with right-sided abdominal pain and had an ultrasound that was normal. She was referred here and I ordered a HIDA scan which was also normal. Given the fact that the HIDA filled and had normal ejection fraction and there were no stones in her gallbladder I do not believe this is gallbladder related. I discussed performing EGD to check for peptic ulcer disease and duodenal ulcers or irritation. I will also perform a colonoscopy to make sure there is no structural reason for her to be constipated. She may need further medications and I encouraged her to try increasing her MiraLAX to stop her constipation and this may take care of her pain. I will plan for EGD and colonoscopy to evaluate. I explained endoscopy in detail to the patient. I explained the risks including but not limited to stroke or heart attack with anesthesia, perforation of the GI tract, bleeding, infection. I explained that any of these could necessitate further emergency surgery. The patient understands and all questions were answered sufficiently. The patient wishes to proceed with procedure. Elie Weinberg MD Pager: [facility] [address] [place] [address], [address] [place] [address] Office: I have examined the patient and the H&P has been reviewed. There are no clinical changes since date of exam.
--- NOTE | 2023-12-30 10:57 | OP.EGD_ITS ---
Patient Name: Andree Mckinnon Procedure Date: 12/30/2023 10:21 AM Date of : 1970 Age: 53 Procedure: Upper GI endoscopy Indications: Abdominal pain in the right upper quadrant Providers: Elie Weinberg MD Medicines: Propofol per Anesthesia Patient Profile: This is a 53 year old female. Refer to note in patient chart for documentation of history and physical. Complications: No immediate complications. Estimated blood loss: Minimal. Procedure: Pre-Anesthesia Assessment: - Prior to the procedure, a History and Physical was performed, and patient medications and allergies were reviewed. The patient's tolerance of previous anesthesia was also reviewed. The risks and benefits of the procedure and the sedation options and risks were discussed with the patient. All questions were answered, and informed consent was obtained. Prior Anticoagulants: The patient has taken no anticoagulant or antiplatelet agents. After reviewing the risks and benefits, the patient was deemed in satisfactory condition to undergo the procedure. After obtaining informed consent, the endoscope was passed under direct vision. Throughout the procedure, the patient's blood pressure, pulse, and oxygen saturations were monitored continuously. The gastroscope was introduced through the mouth, and advanced to the third part of duodenum. The upper GI endoscopy was accomplished without difficulty. The patient tolerated the procedure well. Scope In: 10:30:42 AM Scope Out: 10:32:45 AM Total Procedure Duration Time 0 hours 2 minutes 3 seconds Findings: The esophagus was normal. The stomach was normal. The examined duodenum was normal. Impression: - Normal esophagus. - Normal stomach. - Normal examined duodenum. - No specimens collected. Recommendation: - Discharge patient to home. - Resume previous diet. - Continue present medications. Procedure Code(s): --- Professional --- 50141, Esophagogastroduodenoscopy, flexible, transoral; diagnostic, including collection of specimen(s) by brushing or washing, when performed (separate procedure) Diagnosis Code(s): --- Professional --- R10.11, Right upper quadrant pain CPT copyright 2021 [employer]. All rights reserved. The codes documented in this report are preliminary and upon geothermal operations engineer review may be revised to meet current compliance requirements. Elie Weinberg MD 12/30/2023 10:56:46 AM This report has been signed electronically. Number of Addenda: 0 Note Initiated On: 12/30/2023 10:21 AM
--- NOTE | 2023-12-30 10:57 | OP.CCLET_ITS ---
12/30/2023 Sushila Mckinley [address] [place] [address] Re : Upper GI endoscopy procedure for Andree Mckinnon Dear Dr. Mckinley This procedure was performed on Saturday, December 30, 2023. My impressions and recommendations are as follows: Impressions : - Normal esophagus. - Normal stomach. - Normal examined duodenum. - No specimens collected. Recommendations : - Discharge patient to home. - Resume previous diet. - Continue present medications. My findings are described in the full procedure note, which is enclosed. If I can be of further assistance, please feel free to contact me at Doctor phone number(s): , Work: . Sincerely, Elie Weinberg MD 12/30/2023 10:56:46 AM This report has been signed electronically.
--- NOTE | 2023-12-30 10:58 | OP.CCLET_ITS ---
12/30/2023 [address]ila [address] [place] [address] Re : Colonoscopy procedure for Andree Mckinnon Dear Dr. Mckinley This procedure was performed on Saturday, December 30, 2023. My impressions and recommendations are as follows: Impressions : - The entire examined colon is normal on direct and retroflexion views. - No specimens collected. Recommendations : - Discharge patient to home. - Resume previous diet. - Continue present medications. - Repeat colonoscopy in 10 years for screening purposes. My findings are described in the full procedure note, which is enclosed. If I can be of further assistance, please feel free to contact me at Doctor phone number(s): , Work: . Sincerely, Elie Weinberg MD 12/30/2023 10:57:58 AM This report has been signed electronically.
--- NOTE | 2023-12-30 10:58 | OP.COLON_ITS ---
Patient Name: Andree Mckinnon Procedure Date: 12/30/2023 10:34 AM Date of : 1970 Age: 53 Procedure: Colonoscopy Indications: Constipation Providers: Elie Weinberg MD Medicines: Propofol per Anesthesia Patient Profile: This is a 53 year old female. Refer to note in patient chart for documentation of history and physical. Last Colonoscopy: none. The patient's first colonoscopy is today. Complications: No immediate complications. Procedure: Pre-Anesthesia Assessment: - Prior to the procedure, a History and Physical was performed, and patient medications and allergies were reviewed. The patient's tolerance of previous anesthesia was also reviewed. The risks and benefits of the procedure and the sedation options and risks were discussed with the patient. All questions were answered, and informed consent was obtained. Prior Anticoagulants: The patient has taken no anticoagulant or antiplatelet agents. After reviewing the risks and benefits, the patient was deemed in satisfactory condition to undergo the procedure. - Prior to the procedure, a History and Physical was performed, and patient medications and allergies were reviewed. The patient's tolerance of previous anesthesia was also reviewed. The risks and benefits of the procedure and the sedation options and risks were discussed with the patient. All questions were answered, and informed consent was obtained. Prior Anticoagulants: The patient has taken no anticoagulant or antiplatelet agents. After reviewing the risks and benefits, the patient was deemed in satisfactory condition to undergo the procedure. After I obtained informed consent, the scope was passed under direct vision. Throughout the procedure, the patient's blood pressure, pulse, and oxygen saturations were monitored continuously. The pediatric colonoscope was introduced through the anus and advanced to the cecum, identified by appendiceal orifice and ileocecal valve. The colonoscopy was performed without difficulty. The patient tolerated the procedure well. The quality of the bowel preparation was good. The ileocecal valve, appendiceal orifice, and rectum were photographed. Scope In: 10:35:28 AM Scope Withdrawal Time 0 hours 6 minutes 8 seconds Scope Out: 10:49:27 AM Total Procedure Duration Time 0 hours 13 minutes 59 seconds Findings: The entire examined colon appeared normal on direct and retroflexion views. Impression: - The entire examined colon is normal on direct and retroflexion views. - No specimens collected. Recommendation: - Discharge patient to home. - Resume previous diet. - Continue present medications. - Repeat colonoscopy in 10 years for screening purposes. Procedure Code(s): --- Professional --- 55821, Colonoscopy, flexible; diagnostic, including collection of specimen(s) by brushing or washing, when performed (separate procedure) Diagnosis Code(s): --- Professional --- K59.00, Constipation, unspecified CPT copyright 2021 [employer]. All rights reserved. The codes documented in this report are preliminary and upon building rigger review may be revised to meet current compliance requirements. Elie Weinberg MD 12/30/2023 10:57:58 AM This report has been signed electronically. Number of Addenda: 0 Note Initiated On: 12/30/2023 10:34 AM
== END 2023-12-30 11:30 | disposition home or self-care (01) ==
LOC: EN 09:01 → AC 09:32
PROVIDERS: PCP Family Medicine; Referring Provider Family Medicine; Visit Provider Surgery
PROC: 0DJD8ZZ Inspection of Lower Intestinal Tract, Via Natural or Artificial Opening Endoscopic (ICD-10-PCS; CPT 45378; principal; 2023-12-30 10:10)
DX: R10.11 Right upper quadrant pain (principal); E11.9 Type 2 diabetes mellitus without complications; K59.00 Constipation, unspecified; Z96.41 Presence of insulin pump (external) (internal); R07.81 Pleurodynia; E78.00 Pure hypercholesterolemia, unspecified; Z98.51 Tubal ligation status; Z86.16 Personal history of COVID-19; Z87.448 Personal history of other diseases of urinary system; Z78.0 Asymptomatic menopausal state
CPT/HCPCS: 43235; 45378; 82962; J7120; J2405

== ENCOUNTER → 2024-04-27 | Outpatient (CLI) | payer SELFPAY ==
--- NOTE | 2024-04-27 17:56 | US_ITS ---
STUDY: ULTRASOUND OF THE FEMALE PELVIS - COMPLETE REASON FOR EXAM: Female, 53 years old. PELVIC PAIN/PMB LMP: TECHNIQUE: Transabdominal and Transvaginal TECHNICAL QUALITY: Adequate. COMPARISON: CT scan 11/27/2023. FINDINGS: The uterus is anteverted and is in a midline position. The uterus measures 14.4 x 8.0 x 4.7 cm. There is a Nabothian cyst of the cervix. The endometrium measures 11 mm in thickness, and is hyperechoic. There is no demonstrated endometrial mass. There is a 3.8 cm left uterine fibroid. A diffusely heterogeneous appearance of the uterus suggestive of diffuse leiomyomatous change. I.U.D. - The patient does not have an I.U.D. The right ovary is non-visualized. The left ovary is visualized. The left ovary measures 3.2 x 2.7 x 2.1 cm. There is a 2.1 cm cyst. There is no visualized left adnexal mass or complex lesion. There is normal arterial and normal venous vascularity. There is no fluid in the cul-de-sac. The pre void volume of the bladder was 258 ml. US/Pelvic w/ Transvaginal IMPRESSION: Markedly enlarged uterus for age. Uterus is also diffusely heterogeneous and the findings are most consistent with diffuse leiomyomatous change. Electronically Signed: Sawyer Vanegas MD at 0:01 EDT ,
== END | disposition home or self-care (01) ==
LOC: US 17:54
PROVIDERS: PCP Family Medicine; Referring Provider Obstetrics & Gynecology; Visit Provider Obstetrics & Gynecology
DX: R10.2 Pelvic and perineal pain (principal)
CPT/HCPCS: 76830; 76856

== ENCOUNTER 2024-05-04 11:16 | Day surgery (SDC) | payer SELFPAY ==
[2024-05-04] VITALS (11 sets, daily range): BP systolic 120–133; BP diastolic 71–86; PULSE 62–80; RESP 16–18; TEMP 36.3–37.1; O2SAT 98–100; BMI 22.0
--- NOTE | 2024-05-04 11:54 | HP.PCM_ITS ---
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 Is patient in pain?: No Allergies diphenhydramine (From Benadryl) Adverse Reaction (Verified 04/19/24 08:56) RESTLESS Medications ?Medication ?Instructions ?Recorded ?Confirmed ?Type blood-glucose sensor (FreeStyle #2 ea 10/29/23 04/19/24 Rx Erika 3 Sensor device) insulin pump cartridge,automated #1 ea 12/16/23 04/19/24 Rx dose,BT with controller subcutaneous (Omnipod 5 G6 Intro Kit (Gen 5) subcutaneous cartridge with controller) insulin glargine 100 unit/mL (3 18 unit subcut DAILY 12/24/23 04/19/24 History mL) subcutaneous pen (Lantus Solostar U-100 Insulin) insulin lispro 100 unit/mL 3 unit subcut BID 12/24/23 04/19/24 History subcutaneous pen (Humalog KwikPen (U-100) Insulin) Post menopausal: No Patient : No : No PFSH Medical History Wears glasses Post-menopausal Cancer Insulin dependent diabetes mellitus History of renal disease Non-smoker History of pain when walking RUQ abdominal pain High cholesterol Diabetes History of nephrolithotomy with removal of calculi Surgical History S/P tubal ligation Family History Grandfather CAD (coronary artery disease)Grandmother COPD (chronic obstructive pulmonary disease) Social History (Updated 04/19/24 @ 08:57 by Odalis Hamilton) Smoking Status: Never smoker alcohol intake: current details: rare occasions substance use type: does not use caffeine: Yes what type of physical activity do you participate in: walking, running and other details: kettlebells frequency: 1-2 times per week seatbelt use: always do you feel safe at home: Yes additional social history: Boyfriend-Mauricio HPI ESSURE COILS (REF BMS ENDO) Details: TAMIA ALONZO is a 53 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 Over the last several years she has had to remove her umbilical piercing, and remove all metal from her body due to pain and swelling. She states that even a magnesium cream cause extreme burning of her skin. She states that when she contacted her former provider about the complaints of tingling and pain in her pelvis and legs that he told her that it was not from the essure and likely neuropathy from her newly diagnosed type 1 DM. This did make sense at the time due to an a1c level of 15 upon diagnosis. Her A1c is now 6. She is thin and active and the diagnosis took her other provider by surprise when they first discovered her elevated glucose levels. They believed it was type 2 for a long time until they found it was actually type one DM. Tamia has not been to an services executive for a pap or mammogram since Dr. Po Cm retired from [employer] [employer] [facility] History 3 Elective abortions Hx Para 3 Spontaneous abortions Hx # Term Pregnancies Ectopic pregnancies Hx # Pregnancies Multiple births # of living children 3 Past Pregnancies Del. Date Name GA/Weeks Outcome Route Bth Weight [facility] F[facility] Unknown An Unknown Elisha Unknown Adam NICHOLAS Const ROS Unobtainable: All systems reviewed & are unremarkable except as noted in H Resp Resp: Reports system reviewed and no additional complaints, except as documented; Denies cough GI GI: Reports as per HPI Psych Psych: Reports system reviewed and no additional complaints, except as d ocumented Exam Const General: cooperative, healthy appearing, comfortable and no acute distress Resp Effort & Inspection: normal respiratory effort Skin General: no rashes or lesions noted Psych Appearance: grossly normal Speech and Movement: speech and movement normal Coding Level of Care Code Off vis,new,level 4 Diagnoses Postmenopausal bleeding N95.0 Pelvic pain R10.2 Chronic kidney disease (CKD) stage G2/A2, mildly decreased glomerular filtration rate (GFR) between 60-89 mL/min/1.73 square meter and albuminuria creatinine ratio between 30-299 mg/g N18.2 Type 1 diabetes mellitus with hyperglycemia E10.65 Assessment and Plan Assessment and Plan (1) Postmenopausal bleeding: Status: Acute (2) Pelvic pain: Status: Acute (3) Chronic kidney disease (CKD) stage G2/A2, mildly decreased glomerular filtration rate (GFR) between 60-89 mL/min/1.73 square meter and albuminuria creatinine ratio between 30-299 mg/g: Status: Chronic (4) Type 1 diabetes mellitus with hyperglycemia: Status: Chronic Orders: Orders Pelvic w/ Transvaginal Today N95.0 - Postmenopausal bleeding, R10.2 - Pelvic and perineal pain SCRN MAMM (CAD)W/ORIANA BILAT Today Plan After discussing the patient's diagnosis and treatment plan options, patient wishes to proceed with surgical management. I have discussed with the patient the risks, benefits, and alternatives of the procedure which include but are not limited to risks of anesthesia, bleeding, infection, possible damage to bowel, bladder, or surrounding vasculature which could lead to additional surgery to evaluate any complications. Patient agrees to procedure and wishes to proceed. ACOG/uptodate references given for additional information regarding procedure. plan is for a hysteroscopy D&C, laparoscopic removal of essure coils (to be done first so that any remaining piece coil may be removed through the hysteroscope. will also need a pap and wishes to do this at the time of the procedure.
--- NOTE | 2024-05-04 11:55 | PCM.DC ---
Discharge Instructions Diet Discharge Diet: No restrictions Activity Discharge Activity: Return to Normal Activity, May Not Drive (for two weeks or while taking narcotic pain medications.), May Shower and May Take a Tub Bath (in 7 days) May resume sexual activity in: 1 week Weight Bearing Status: Full weight bearing Dressing / Incision Call your doctor if you observe: Using more than 1 pad per hour, Shortness of breath, Chest pain and Uncontrolled pain Suture Line Care: Avoid Pulling/Pushing and Avoid Pinching/Bending Remove Dressing in: 1 week (if present) Cleanse incision/area with: Soap & Water and Keep Dressing Clean & Dry Follow Up Care Please Follow Up With: Arleth Hickey DO When: Call to make an appointment with your doctor for a follow up incision check in 1-2 weeks. Test Results: Test results from this visit will be discussed in further detail at your follow-up appointment, if applicable. Discharge Plan Admission Primary Reason for Your Visit: hysteroscopy D&C and laparoscopy removal of tubes and essure coils Attending Provider: Arleth Hickey Primary Care Provider: Care Physician,No Primary Instructions Print Language: Sudanese Discharge Orders/Prescriptions Prescriptions: New ibuprofen 800 mg tablet 800 mg PO Q8H PRN (Reason: pain) Qty: 30 0RF oxycodone-acetaminophen [Percocet] 5-325 mg tablet 1 tab PO Q4H PRN (Reason: pain) 7 Days Qty: 10 0RF Rx Instructions: 1-2 tabs q 4 hrs as needed for pain No Action insulin lispro [Humalog KwikPen Insulin] 100 unit/mL insulin pen 3 unit subcut BID Patient Comments: 3-5 UNITS BASED ON BS insulin glargine [Lantus Solostar U-100 Insulin] 100 unit/mL (3 mL) insulin pen 15 unit subcut DAILY (DME) FreeStyle Erika 3 Sensor Device See Rx Instructions .Route Qty: 2 5RF Rx Instructions: 1 sensor q 14 days (DME) Omnipod 5 G6 Intro Kit (Gen 5) Cartridge See Rx Instructions .Route Qty: 1 0RF Rx Instructions: As directed Other Ambulatory Orders: Hemoglobin A1c (Routine) Timeframe: [id number] Facility: [facility] - Location: Laboratory Ordered By: Dr. Jim Jang Basic Metabolic Profile (BMP) (Routine) Timeframe: [id number] Facility: [facility] - Location: Laboratory Ordered By: Dr. Jim Jang Referrals / Follow Up: Sushila Mckinley MD [Med Staff - Curriculum Coach] - Disposition Disposition (needs filled in before D/C Order can be placed): Home, Self Care
[2024-05-04 12:01] LABS: Internal QC Validated? YES +Cl - CLEAR BKGD; Pregnancy, Urine Negative Negative
[2024-05-04] MEDS: Dextrose 5%-Lactated Ringers 1,000 ML 15 ML IV (12:06)
[2024-05-04 12:10] LABS: Hematocrit 35.8 % (37-47); Hemoglobin 12.1 g/dL (12.0-15.0); Mean Corp Hgb Conc 33.8 g/dL (32-36); Mean Corpuscular Hgb 28.7 pg (27.0-32.0); Mean Platelet Vol. 10.5 fl (6.2-12.0); Platelet Count 302 K/mm3 (150-450); RBC Distribution Width CV 12.2 % (11.6-14.6); RBC Distribution Width SD 37.4 fl (35.1-43.9); Red Blood Count 4.21 M/mm3 (4.2-5.4); White Blood Count 5.8 K/mm3 (4.4-11.0)
[2024-05-04 12:17] LABS: Bedside Glucose 77 mg/dL (74-106)
--- NOTE | 2024-05-04 12:45 | PCM.PRE.AN2 ---
ASA Classification* ASA Classification ASA Classification: 2 Assessment & Plan Anesthesia* Anesthesia Assessment Anesthesia Assessment: Discussed sedation and/or anesthesia options, risks, benefits, and alternatives with patient/parents/legal guardian/POA. Questions invited. The patient/parents/legal guardian/POA seems to understand and agrees to proceed with anesthesia plan. Reviewed the physical assessment, medical history, allergy history and patient home medications list prior to surgery/procedure/anesthetic and documented any changes. Performed airway and anesthesia risk assessments. Anesthesia Type Anesthesia Type: General History Source History Obtained from:: Patient and Chart Anesthesia Focused Assessment* Temperature: 98.7 F Pulse Rate: 66 Blood Pressure: 120/71 Respiratory Rate: 18 Pulse Ox: 100 Oxygen Delivery Method: Room Air Airway Assessment Mouth opens: >3 cm Mallampati Score: II Teeth Condition: Intact Neck Range of motion (ROM): Full ROM Focused Labs Anesthesia Preop lab: CBC WBC 5.8 K/mm3 (4.4-11.0) 05/04/24 11:35 RBC 4.21 M/mm3 (4.2-5.4) 05/04/24 11:35 Hgb 12.1 g/dL (12.0-15.0) 05/04/24 11:35 Hct 35.8 % (37-47) L 05/04/24 11:35 Plt Count 302 K/mm3 (150-450) 05/04/24 11:35 CHEMISTRY Potassium 3.6 mmol/L (3.5-5.1) 12/05/23 18:10 Sodium 137 mmol/L (136-145) 12/05/23 18:10 Phosphorus 2.9 mg/dL (2.5-4.9) 04/12/14 07:45 BUN 18 mg/dL (7-18) 12/05/23 18:10 Creatinine 0.82 mg/dL (0.55-1.02) 12/05/23 18:10 Glucose 172 mg/dL (74-106) H 12/05/23 18:10 POC Glucose 77 mg/dL (74-106) 05/04/24 11:59 TSH 2.13 uIU/mL (0.358-3.74) 06/30/19 11:54 COAG Urine Test Negative Negative 05/04/24 11:30 Pre-Assessment Diagnosis/Proposed Procedure Planned Operative Procedure(s): HYSTEROSCOPY, D&C, LAP B/L SALPING ESSURE REMOVAL Anesthesia History 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 When Was Last Pacemaker Check QUESTION #4 FULL TEXT: You/Your Family Experience fever (hyperthermia) with Anesthesia Last Oral Intake Last Oral intake: Last Oral Intake NPO since 00:00 05/04/24 12:09 Meds taken in AM with sips of No 05/04/24 12:09 water? Meds patient instructed to take am of surgery PONV PONV - statistics teacher: PONV - statistics teacher Female Yes 04/30/24 12:36 HX of Motion Sickness No 04/30/24 12:36 HX of N/V After Surgery Yes 04/30/24 12:36 Non-Smoker Yes 04/30/24 12:36 Duration of Surgery greater No 04/30/24 12:36 than 60 minutes Number of Risk Factors 3 04/30/24 12:36 PONV Score Moderate Risk 04/30/24 12:36 Height & Weight Height & Weight: Anesthesia: Height & Weight Height 5 ft 8 in 05/04/24 12:09 Weight: 65.771 kg 05/04/24 12:09 Body Mass Index (BMI) 22.0 05/04/24 12:09 Respiratory Assessment Respiratory Assessment - statistics teacher: Respiratory Tract Infection Hx - statistics teacher Hx Respiratory Tract Infection No 04/30/24 12:36 STOP Sleep Apnea STOP Sleep Apnea - statistics teacher: STOP Sleep Apnea - statistics teacher Hx Hypertension No 04/30/24 12:36 Hx Sleep Apnea No 04/30/24 12:36 CPAP BIPAP Do you snore loudly (louder No 04/30/24 12:36 than talking or can be heard Do you often feel tired/ No 04/30/24 12:36 fatigued/ sleepy during daytime? Has anyone observed you stop No 04/30/24 12:36 breathing during sleep? STOP Results Negative 04/30/24 12:36 QUESTION #5 FULL TEXT : Do you snore loudly (louder than talking or can be heard through closed doors)? 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 Specify any problems Hx of Preganancy in last 3 No 04/30/24 12:36 Months Nurse Filling Out Transfusion [facility] 04/30/24 12:36 & Questions: Date: 04/30/24 04/30/24 12:36 Time: 12:41 04/30/24 12:36 Patient unable to answer at this time (ie. confused, unrespo /Reproduction History /Reproductive History - statistics teacher: /Reproductive Hx- statistics teacher Hx Now No 04/30/24 12:36 Gestational Age (in weeks): EDC: Hx Hx Para Hx Section SAB No 04/19/24 08:57 Active Medications Active Medications: Current Medications Generic Name Dose Route Start Last Admin Trade Name Freq PRN Reason Stop Dose Admin Cefotetan Disodium 2 gm/ 100 mls @ 200 mls/hr 05/04/24 12:55 Sodium Chloride IV 05/04/24 13:24 PREOP ONE Dextrose/Lactated Ringer's 1,000 mls @ 15 mls/hr 05/04/24 12:05 05/04/24 12:06 IV 15 mls/hr .Q48H DARIA Administration PFSH Medical History (Updated 04/30/24 @ 12:50 by Jimena Peterson) S/P extracorporeal shock wave therapy Encounter for Essure implantation Wears glasses Post-menopausal Cancer Insulin dependent diabetes mellitus History of renal disease Non-smoker History of pain when walking RUQ abdominal pain High cholesterol Diabetes History of nephrolithotomy with removal of calculi Home Medications ?Medication ?Instructions ?Recorded ?Last Taken ?Type blood-glucose sensor (FreeStyle #2 ea 10/29/23 Unknown Rx Erika 3 Sensor device) insulin pump cartridge,automated #1 ea 12/16/23 Unknown Rx dose,BT with controller subcutaneous (Omnipod 5 G6 Intro Kit (Gen 5) subcutaneous cartridge with controller) insulin glargine 100 unit/mL (3 15 unit subcut DAILY 12/24/23 05/03/24 08:00 History mL) subcutaneous pen (Lantus Solostar U-100 Insulin) insulin lispro 100 unit/mL 3 unit subcut BID 12/24/23 05/03/24 20:00 History subcutaneous pen (Humalog KwikPen (U-100) Insulin) ibuprofen 800 mg tablet 800 mg PO Q8H PRN pain #30 tabs 05/04/24 Unknown Rx oxycodone-acetaminophen 5 mg-325 1 tab PO Q4H PRN pain 7 days #10 05/04/24 Unknown Rx mg tablet (Percocet) tabs Allergy/AdvReac Type Severity Reaction Status Date / Time diphenhydramine (From AdvReac RESTLESS Verified 05/04/24 12:14 Benadryl) Family History Grandfather CAD (coronary artery disease) Grandmother COPD (chronic obstructive pulmonary disease) Surgical History (Updated 05/04/24 @ 11:[address] Arleth Hickey, ) S/P tubal ligation Social History (Updated 04/19/24 @ 08:57 by Odalis Hamilton) Smoking Status: Never smoker alcohol intake: current details: rare occasions substance use type: does not use caffeine: Yes what type of physical activity do you participate in: walking, running and other details: kettlebells frequency: 1-2 times per week seatbelt use: always do you feel safe at home: Yes additional social history: Boyfriend-Mauricio Review of Systems (Anesthesia) ROS Narrative System reviewed and no additional complaints, except as documented.
[2024-05-04] MEDS: Cefotetan 2 GM in 0.9% Normal Saline (100mL MB+) 100 ML IV (12:56)
--- NOTE | 2024-05-04 13:00 | FALS_PTH ---
PATIENT: TAMIA WANG LOC: [facility] U#:[id number] AGE/SX: 53/F ROOM: RE05/04/[address]: Dr. Arleth Hickey DO : 1970 BED: DIS: 05/04/2024 SPEC #: [id number] RECD: 05/04/24 18:01 STATUS: LAVON QUAN #: [id number] TAMARA: 05/04/24 13:[address]: Arleth Hickey DEPT: SURGICAL PATHOLOGY RECD BY: Vinayak Hernandez ENTERED: 05/05/24 09:17 SP TYPE: FALL TUBES OTHR DR: No Primary Care Phys Tissues: A - Fallopian tube B - Endometrial cavity Procedures: Surgery Specimen Level II Surgery Specimen Level IV HEADER OPERATION: Hysterectomy, D&C, laparoscopic bilateral tubes PRE-OP DIAGNOSIS: Post menopausal bleeding, pelvic pain TISSUE SUBMITTED: A- Bilateral tubes, B- Endometrial curettings MICROSCOPIC DIAGNOSIS A. Right and left fallopian tubes, bilateral salpingectomies: Complete cross-sections of fallopian tubes. One fallopian tube with benign paratubal cyst. See comment. B. Endometrium, curettings: Proliferative endometrium with mild disorder. AM: 05/06/2024 COMMENT A.Metallic wires and coils consistent with Essure devices are present in the specimen container. Case has been reviewed in consultation with Dr. Fuentes who concurs with the above diagnosis. IDC:[id number] MICROSCOPIC DESCRIPTION Slides are reviewed. GROSS DESCRIPTION A. Received in fixative is one container labeled with the patient's name and designated bilateral fallopian tubes. The specimen consists of bilateral fallopian tubes including fimbrial ends. One fallopian tube measuring 6.5cm in length and 0.6cm in diameter. Second fallopian tube measuring 8.5 cm in length and 0.6 cm in diameter. This tube also shows a coil metallic wire in the lumen and also out of the lumen measuring 12.5cm in length. Two coil metallic wire is also present in the container measuring 3.0 and 24.0cm in length. The fallopian tubes are not identified as right or left. Sections reveal unremarkable cut surfaces. Project Management sections are submitted in two cassettes. 1- fallopian tube without metallic wire, 2- fallopian tube with metallic wire in the lumen. B. Received in fixative is one container labeled with the patient's name and designated Endometrial curettings. The specimen consists of multiple irregular fragments of hemorrhagic mucoid tissue that in aggregate measure 3.0 x 1.3 x 0.1 cm. The specimen is totally submitted in one cassette. SJAlbertomr 05/05/2024 TC:5 CPT:00354m5,26910
[2024-05-04] MEDS: Bupivacaine 0.25% 30 ML Vial (13:20)
[2024-05-04] MEDS: Lidocaine 1% (20 ml mdv) 20 ML Vial (13:49)
--- NOTE | 2024-05-04 14:22 | PCM.OPRPT ---
Problems Associated Problem List Diagnoses (1) Postmenopausal bleeding: (2) Pelvic pain: (3) Encounter for removal of Essure: Report of Operation Date of Procedure: 05/04/24 Pre-Operative Diagnosis: pelvic pain, postmenopausal bleeding, essure coils in place, desire for removal, pap under anesthesia Post-Operative Diagnosis: pelvic pain, postmenopausal bleeding, essure coils in place, desire for removal, pap under anesthesia Surgery/Procedure Performed:: Laparoscopic bilateral salpingectomy, removal of essure coils, hysteroscopy, dilation and curettage, pap smear Surgeon: Arleth Hickey plastic molder: Denis Hugo Type of Anesthesia: General Anesthesiologist: Jim Jang Specimen's removed: bilateral fallopian tubes, endometrial curettings, pap specimen Drains: none Estimated Blood Loss (mL): 5cc Description of Procedure: Patient was taken in the operating room and was placed under general anesthesia was prepped and draped in normal sterile fashion in the dorsal lithotomy position. A pap was first collected. Next, the Bladder was drained of clear urine and SCDs were on preoperatively. A single toothed tenaculum was placed on the anterior lip the cervix and a sponge stick was inserted in the posterior aspect of the uterus to elevate the uterus. Attention was then paid to the abdominal portion of the procedure and the umbilicus was elevated with towel clamps and injected with Marcaine and after a 5 mm incision was made and a 5 mm laparoscope was inserted into the abdomen under direct visualization. The Abdomen was insufflated with CO2 gas and the patient was placed in Trendelenburg position. A left lower quadrant 5 mm port and a 5 mm port suprapubically were placed under direct visualization. A suprapubic 5 mm trocar was inserted next. Uterus was well visualized and bilateral fallopian tubes identified and bilateral tubes were elevated and transecting across the mesosalpinx and the attachment to the uterine corpus bilaterally the tubes were removed without complication. The Essure coils were teased out of the cornua and both coil ends were seen, confirming complete removal. Excellent hemostasis was noted. Fallopian tubes were removed through the lower port sites without complication. Liver and upper abdomen were visualized notably within normal limits and no other gross abnormalities were seen in the abdomen. All instruments removed from the abdomen after gas was desufflated. Port sites were closed with 3-0 Monocryl Steri's and op sites were applied. Next, a hysteroscopy was performed. A weighted speculum was placed in the vagina and the anterior lip of the cervix was grasped with a single-tooth tenaculum. A paracervical block was placed with 1% lidocaine. Cervix was progressively dilated to allow passage of a 5 mm hysteroscope. The lining was fully visualized and noted to have a thin appearing endometrium. Uterine sounded to 10 cm. Curettage was performed and scant tissue was sent to pathology. Both tubal ostia were visualized and noted to be free of the Essure coils. All instruments removed from the vagina and patient was awoken and taken recovery in stable condition. Complications none Admit VTE Documentation VTE Present on Admission: No VTE Mechan Device Prophylaxis: SCD's VTE Pharm Prophylaxis ordered?: No Multi Select Codes Urinary/Genital Urinary/Genital CPT Codes: 71082 Hysteroscopy,EMC, Polypectomy and 38656 Laproscopic BS/O
--- NOTE | 2024-05-04 14:25 | PCM.POST.ANE ---
Anesthesia: Postop Eval I Current Vital Signs Temperature: 97.4 F Pulse Rate: 80 Blood Pressure: 133/82 Respiratory Rate: 16 Pulse Ox: 98 Oxygen Delivery Method: Room Air Assessment Airway patent: Yes Spontaneous unlabored respirations: Yes Mental status: Awake and Calm nausea: No Vomiting: No Anesthesia Complication: No Fluid Hydration Crystalloid volume administer (ml): 900 Total IV fluid infused: 900 Progress Note Anesthesia document: Postop Eval 1 completed: Yes
[2024-05-04] MEDS: Lactated Ringers 1,000 ML 30 ML IV (14:50)
--- NOTE | 2024-05-04 15:01 | SUR.PHASEI ---
PATIENT'S CONTINUOUS GLUCOSE MONITORING NOW 248 DOWN FROM 269 ON PACU ARRIVAL. PATIENT REPORTS SHE IS ASYMPTOMATIC. CHANGED FROM D5LR TO LR PER DR RONDON ORDER.
--- NOTE | 2024-05-04 16:35 | POSTOPAN2_ITS ---
Anesthesia Postop Eval I Sum Postop Eval Completion status Anesthesia document: Postop Eval 1 completed: Yes Anesthesia Postop Eval I Summary Anesthesia Postop Eval I Summary: Anesthesia Postop Eval I: Assessment Summary Airway patent Yes 05/04/24 14:26 TAR HEATER OPERATOR.JDEF Spontaneous unlabored Yes 05/04/24 14:26 TAR HEATER OPERATOR.JDEF respirations Mental status Awake,Calm 05/04/24 14:26 TAR HEATER OPERATOR.JDEF nausea No 05/04/24 14:26 TAR HEATER OPERATOR.JDEF Vomiting No 05/04/24 14:26 TAR HEATER OPERATOR.JDEF Anesthesia Postop Eval I: Fluid Summary Crystalloid volume administer 900 05/04/24 14:26 TAR HEATER OPERATOR.JDEF (ml) Colloids volume administered ( ml) Blood Product volume administered (ml) Total IV fluid infused 900 05/04/24 14:26 TAR HEATER OPERATOR.JDEF Anesthesia Postop Eval I: Summary Notes Anesthesia Complication No 05/04/24 14:26 TAR HEATER OPERATOR.JDEF Anesthesia Complication Comment: Post-operative progress note Anesthesia: Postop Eval II Evaluation Mental status: Awake and Calm Pain Level: 1 nausea: No Vomiting: No Complications Anesthesia Complication: No
--- NOTE | 2024-05-04 16:35 | PCM.POSTANE2 ---
Anesthesia Postop Eval I Sum Postop Eval Completion status Anesthesia document: Postop Eval 1 completed: Yes Anesthesia Postop Eval I Summary Anesthesia Postop Eval I Summary: Anesthesia Postop Eval I: Assessment Summary Airway patent Yes 05/04/24 14:26 VICE PRESIDENT CORPORATE COMMUNICATIONS.JDEF Spontaneous unlabored Yes 05/04/24 14:26 VICE PRESIDENT CORPORATE COMMUNICATIONS.JDEF respirations Mental status Awake,Calm 05/04/24 14:26 VICE PRESIDENT CORPORATE COMMUNICATIONS.JDEF nausea No 05/04/24 14:26 VICE PRESIDENT CORPORATE COMMUNICATIONS.JDEF Vomiting No 05/04/24 14:26 VICE PRESIDENT CORPORATE COMMUNICATIONS.JDEF Anesthesia Postop Eval I: Fluid Summary Crystalloid volume administer 900 05/04/24 14:26 VICE PRESIDENT CORPORATE COMMUNICATIONS.JDEF (ml) Colloids volume administered ( ml) Blood Product volume administered (ml) Total IV fluid infused 900 05/04/24 14:26 VICE PRESIDENT CORPORATE COMMUNICATIONS.JDEF Anesthesia Postop Eval I: Summary Notes Anesthesia Complication No 05/04/24 14:26 VICE PRESIDENT CORPORATE COMMUNICATIONS.JDEF Anesthesia Complication Comment: Post-operative progress note Anesthesia: Postop Eval II Evaluation Mental status: Awake and Calm Pain Level: 1 nausea: No Vomiting: No Complications Anesthesia Complication: No
[2024-05-20 14:32] LABS: HPV Reflexed? YES, CHARGE PATIENT
== END 2024-05-04 16:06 | disposition home or self-care (01) ==
LOC: SDC 11:18 → AC 11:20
PROVIDERS: Referring Provider Obstetrics & Gynecology; Visit Provider Obstetrics & Gynecology
PROC: 0UDB8ZZ Extraction of Endometrium, Via Natural or Artificial Opening Endoscopic (ICD-10-PCS; CPT 58558; principal; 2024-05-04 12:45)
DX: N83.8 Other noninflammatory disorders of ovary, fallopian tube and broad ligament (principal); E10.65 Type 1 diabetes mellitus with hyperglycemia; E10.22 Type 1 diabetes mellitus with diabetic chronic kidney disease; Z79.4 Long term (current) use of insulin; N95.0 Postmenopausal bleeding; N18.2 Chronic kidney disease, stage 2 (mild); E78.00 Pure hypercholesterolemia, unspecified; Z30.432 Encounter for removal of intrauterine contraceptive device
CPT/HCPCS: 58661; 58558; 00840; 81025; 82962; 85027; 86850; 86900; 86901; 87624; 88175; 88302; 88305; J7030; J7120; G0145; J2405

== ENCOUNTER → 2024-07-16 | Outpatient (CLI) | payer SELFPAY ==
--- NOTE | 2024-07-16 10:00 | CER_PTH ---
PATIENT: TAMIA WANG LOC: [facility]#:[id number] AGE/SX: 54/F ROOM: RE07/16/[address]: Dr. Arleth Hickey DO : 1970 BED: DIS: 07/16/2024 SPEC #: [id number] RECD: 07/16/24 12:21 STATUS: LAVON QUAN #: [id number] TAMARA: 07/16/24 10:[address]: Arleth Hickey DEPT: SURGICAL PATHOLOGY RECD BY: Merline Sims ENTERED: 07/16/24 13:49 SP TYPE: CERV OTHR DR: No Primary Care Phys Tissues: A - Uterine cervix, NOS B - Endocervical Procedures: Surgery Specimen Level IV HEADER OPERATION: Polypectomy/colposcopy PRE-OP DIAGNOSIS: Cervical polyp TISSUE SUBMITTED: A- Cervical polyp, B- ECC MICROSCOPIC DIAGNOSIS A. Cervical polyp, biopsy: Fragments of benign endocervical and ectocervical tissue, mildly inflamed. B. Endocervix, curettings: Rare strips of benign superficial glandular and squamous mucosa. AM. 07/19/2024 MICROSCOPIC DESCRIPTION Slides are reviewed. GROSS DESCRIPTION A. Received in fixative is one container labeled with the patient's name and designated Cervical polyp. The specimen consists of multiple irregular fragments of harry mucoid tissue that in aggregate measure 2.0 x 1.0 x 0.2 cm. The specimen is totally submitted in one cassette. B. Received in fixative is one container labeled with the patient's name and designated ECC. The specimen consists of a scant amount of soft tissue. The specimen is totally submitted for cell block preparation. 07/16/2024 TC:5 CPT:11728w6
== END | disposition home or self-care (01) ==
LOC: LABSPEC 11:40
PROVIDERS: Referring Provider Obstetrics & Gynecology; Visit Provider Obstetrics & Gynecology
DX: N84.1 Polyp of cervix uteri (principal)
CPT/HCPCS: 88305

== ENCOUNTER → 2025-07-01 | Outpatient (CLI) | payer OTHER, SELFPAY ==
[2025-07-01 11:27] LABS: Creatinine, Urine (random) 149.00 mg/dL (28.00-217.00); Microalbumin,Random Urine 97.7 mg/L (<20 mg/L)
[2025-07-01 11:41] LABS: AST(SGOT) 19 U/L (<=31); Alanine Aminotransfer ALT/SGPT 19 U/L (<=34); Albumin, Serum 4.0 g/dL (3.5-5.0); Alkaline Phosphatase 108 U/L (35-104); Anion Gap 8 (5-15); BUN 13 mg/dL (4-19); BUN/Creat Ratio 17.7 RATIO (10-20); Calcium,Total 9.1 mg/dL (7.6-11.0); Carbon Dioxide 25.9 mmol/L (21.0-32.0); Chloride 102 mmol/L (98-108); Cholesterol 272 mg/dL (<=200); Globulin 3.0 g/dL (2.2-4.2); Glucose 268 mg/dL (70-99); Low Density Lipoprotein Calc. 198 mg/dL; Potassium 4.1 mmol/L (3.3-5.1); Triglycerides 93 mg/dL; Very Low Density Lipoprotein 19 mg/dL (5-40); Vitamin D,25 Hydroxy 25.4 ng/mL (30-100); cholesterol:hdl ratio screen 4.69
== END | disposition home or self-care (01) ==
LOC: LAB 09:11
PROVIDERS: Referring Provider Nurse Practitioner Family; Visit Provider Nurse Practitioner Family
DX: E10.65 Type 1 diabetes mellitus with hyperglycemia (principal)
CPT/HCPCS: 36415; 80053; 80061; 82043; 82306; 82570; 84443